=== PATIENT | female | born 2000 | race Caucasian/White ===

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

== ENCOUNTER → 2018-01-02 | Outpatient (CLI) | payer BC ==
[2018-01-02 10:57] LABS: CONTROL LINE HPYORI INT CTR LINE PRESENT; H PYLORI QUALITATIVE IgG NEGATIVE (NEGATIVE)
[2018-01-02 11:23] LABS: FERRITIN 16 NG/ML (8-252); IRON (FE) 102 UG/DL (50-170); PERCENT SATURATION 27.9 % (13.2-45.0); TOTAL IRON BINDING CAPACITY 366 UG/DL (250-450)
[2018-01-05 08:22] LABS: IGASUB2 93.7 mg/dL (73.2-301.2); IGASUB3 14.3 mg/dL (13.4-97.9); IgA SERUM (part of Subclasses) 117 mg/dL (87-352); TISSUE TRANSGLUTAMINASE IgA <2 U/mL (0-3); TISSUE TRANSGLUTAMINASE IgG <2 U/mL (0-5)
[2018-01-05 08:22] LABS: H PYLORI SERUM QUANT IGM <9.0 units (0.0-8.9)
== END ==
LOC: M LAB 10:08
DX: R11.2 Nausea with vomiting, unspecified (principal)
CPT/HCPCS: 83550